=== PATIENT | female | born 1960 | race African-American/Black ===

== ENCOUNTER 2019-10-19 19:12 | Emergency (ER) | payer MEDICAID ==
[~2019-10-19] VITALS: Ht 157.5 cm; Wt 75.0 kg
[2019-10-19] MEDS ORDERED: SODIUM CHLORIDE 0.9% 1,000 ML IV ONE (19:55)
[2019-10-19] MEDS ORDERED: METOCLOPRAMIDE HCL 10MG/2ML VIAL IV ONE (20:00)
[2019-10-19] MEDS ORDERED: CLONIDINE 0.2MG TABLET PO ONE (20:00)
[2019-10-19] MEDS ORDERED: DIPHENHYDRAMINE 50MG/ML VIAL IV ONE (20:00)
[2019-10-19 20:33] LABS: BASOPHILS % 1.3 % (0.0-2.0); EOSINOPHILS % 0.9 % (0.0-5.0); HEMATOCRIT. 39.1 % (36.0-48.0); HEMOGLOBIN. 13.3 g/dL (12.0-16.0); LYMPHOCYTES % 23.4 % (20.0-50.0); MEAN CORPUSCULAR HEMOGLOBIN 29.9 pg (28.0-32.0); MEAN PLATELET VOLUME 8.8 fl (7.4-10.4); NEUTROPHILS % 68.4 % (40.0-76.0); PLATELET 255 x1000/uL (130-400); RED BLOOD CELL COUNT 4.45 mill/uL (4.2-5.4); RED CELL DISTRIBUTION WIDTH 14.6 % (11.6-14.6)
[2019-10-19 20:38] LABS: CHLORIDE 106 mEq/L (98-107)
[2019-10-19 20:43] LABS: INR 1.1; PARTIAL THROMBOPLASTIN TIME 28.6 sec (23.4-31.0); PROTHROMBIN TIME 11.2 sec (9.6-11.0)
[2019-10-19] MEDS ORDERED: POTASSIUM CHLORIDE 20MEQ TABLET SR PO ONE (21:45)
[2019-10-20 00:02] VITALS: BP 147/83
== END 2019-10-20 00:34 | disposition home or self-care (01) ==
LOC: ER 19:12
DX: R51 Headache (principal); I10 Essential (primary) hypertension; E87.6 Hypokalemia
CPT/HCPCS: 36415; 70496; 70498; 71045; 80053; 84484; 85025; 85610; 85730; 93005; 96361; 96374; 96375; 99285; J1200; J2765; J7030